=== PATIENT | female | born 1990 | race Caucasian/White ===

== ENCOUNTER 2017-11-26 21:13 | Emergency (ER) | payer SELFPAY ==
[~2017-11-26] VITALS: Ht 167.6 cm; Wt 59.0 kg
--- NOTE | 2017-11-26 22:00 | NUR ---
PT PRESENTED TO THE ER WITH A C/O BLOOD IN HER URINE. PT FEELS THAT SHE IS HAVING A YEAST INFECTION THAT IS CAUSING THIS.
--- NOTE | 2017-11-27 | NUR ---
PT APPEARS TO BE RESTING COMFORTABLY.
[2017-11-27 00:16] LABS: BASOPHILS # (AUTO) 0.1 /CMM (0.0-0.2); EOSINOPHILS % (AUTO) 1.8 % (0.0-6.0); HEMATOCRIT 38 % (33-45); HEMOGLOBIN 13.1 g/dL (11.5-14.8); LYMPHOCYTES # (AUTO) 2.6 /CMM (0.8-4.8); LYMPHOCYTES % (AUTO) 44.7 % (20.0-44.0); MEAN CORPUSCULAR HEMOGLOBIN 33 PG (26.0-33.0); MEAN CORPUSCULAR HGB CONC 34 g/dl (31.0-36.0); MEAN CORPUSCULAR VOLUME 97 fL (82-100); MONOCYTES # (AUTO) 0.5 /CMM (0.1-1.30); MONOCYTES % (AUTO) 8.7 % (2.0-12.0); NEUTROPHILS # (AUTO) 2.6 /CMM (1.8-8.9); NEUTROPHILS % (AUTO) 43.8 % (43.0-81.0); PLATELET COUNT (AUTO) 286 /CMM (150-450); RDW COEFFICIENT OF VARIATION 12.9 (11.5-15.0); RED BLOOD CELL COUNT(AUTO) 3.96 MIL/uL (4.0-5.2); WHITE BLOOD COUNT (AUTO) 5.9 K/uL (4.3-11.0)
[2017-11-27 00:17] LABS: APPEARANCE,URINE CLEAR (CLEAR); BILIRUBIN,URINE NEGATIVE (NEGATIVE); BLOOD, URINE 2+ Ery/uL (NEGATIVE); COLOR,URINE YELLOW (YELLOW); KETONES,URINE NEGATIVE (NEGATIVE); LEUKOCYTE ESTERASE ,URINE NEGATIVE (NEGATIVE); NITRITE, URINE NEGATIVE (NEGATIVE); PH,URINE 7.5 (5.0-8.0); PROTEIN,URINE NEGATIVE (NEGATIVE); UGLUCOSE NEGATIVE (NEGATIVE); UROBILINOGEN,URINE 0.2 EU/dL (0.2)
[2017-11-27 00:27] LABS: BACTERIA,URINE Few /HPF (None Seen); CALCIUM, SERUM 9.2 mg/dL (8.5-10.1); CREATININE 0.7 mg/dL (0.6-1.3); POTASSIUM 3.7 mmol/L (3.5-5.1); SQUAMOUS EPITHELIAL CELL,UR Few /HPF (None Seen); WBC,URINE 0-2 /HPF (0-3)
[2017-11-27 00:34] LABS: BILIRUBIN,TOTAL 0.2 mg/dL (0.2-1.0); TOTAL PROTEIN, SERUM 7.8 g/dL (6.4-8.2)
--- NOTE | 2017-11-27 01:47 | NUR ---
PT IS AWAITING CT RESULTS. RADIOLOGY CALLED.
[2017-11-27] MEDS ORDERED: CIPROFLOXACIN HCL 500 MG TABLET ONE (02:28)
[2017-11-27] MEDS ORDERED: CIPROFLOXACIN HCL 250 MG TABLET PO ONE (02:30)
--- NOTE | 2017-11-27 02:32 | NUR ---
Patient discharged to home in stable condition. Written and verbal after care instructions given. Patient verbalizes understanding of instruction AND RX. PT REC'D HER FIRST DOSE OF MEDICATION NOW. PT IS WAITING FOR A LYFT TO PICK HER UP. VSS. PT AMBULATED OUT WITH A STEADY GAIT.
[2017-11-27 02:35] VITALS: BP 122/72
== END 2017-11-27 02:36 | disposition home or self-care (01) ==
LOC: ER 21:15
DX: N39.0 Urinary tract infection, site not specified (principal); Z88.1 Allergy status to other antibiotic agents
CPT/HCPCS: 36415; 74176; 80053; 81001; 83690; 85025; 87086; 99285; A4606; Z7610; 81000-TC